=== PATIENT | female | born 1965 | race African-American/Black ===

== ENCOUNTER 2024-07-14 07:26 | Inpatient (IN) | payer OTHER ==
[~2024-07-14] VITALS: Ht 177.8 cm; Wt 79.5 kg
[2024-07-14] MEDS: IBUPROFEN 600 MG TABLET PO ONE (11:01)
[2024-07-14] MEDS: CloNIDine HCL 0.1 MG TABLET PO ONE ×2 (11:01→20:49)
[2024-07-14] MEDS: LISINOPRIL 10 MG TABLET PO ONE ×2 (11:02→14:47)
[2024-07-14 11:24] LABS: BASOPHILS % (AUTO) 0.9 % (0.0-2.0); EOSINOPHILS % (AUTO) 1.2 % (1.0-6.0); HEMATOCRIT 40.6 % (36-46); HEMOGLOBIN 13.1 g/dL (12.0-16.0); LYMPHOCYTES # (AUTO) 1.2 K/uL (1.0-4.8); LYMPHOCYTES % (AUTO) 15.3 % (22.0-44.0); MEAN CORPUSCULAR HEMOGLOBIN 28.2 pg (26.0-34.0); MEAN CORPUSCULAR HGB CONC 32.4 G/dL (31.0-37.0); MEAN CORPUSCULAR VOLUME 87 fL (80-100); MONOCYTES # (AUTO) 0.5 K/uL (0.1-1.0); NEUTROPHILS # (AUTO) 5.9 K/uL (1.8-7.7); NEUTROPHILS % (AUTO) 76.6 % (40.0-70.0); PLATELET COUNT (AUTO) 274 K/uL (150-450); RED BLOOD CELL COUNT(AUTO) 4.67 MIL/uL (4.00-5.20); RED CELL DISTRIBUTION WIDTH 12.7 % (11.5-14.5); WHITE BLOOD COUNT (AUTO) 7.7 K/uL (4.5-11.0)
[2024-07-14 11:38] LABS: PROTHROMBIN TIME 10.1 SEC (9.4-11.6)
[2024-07-14 11:53] LABS: ANION GAP 8 mmol/L (8-16); CALCIUM, TOTAL 8.8 mg/dL (8.8-10.5); CARBON DIOXIDE 29 mmol/L (22-29); CHLORIDE 104 mmol/L (98-107); CREATININE 0.97 mg/dL (0.60-1.30); GLOMERULAR FILTR. RATE CALC > 60 mL/min (>60); GLUCOSE,RANDOM 104 mg/dL (70-110); POTASSIUM 4.2 mmol/L (3.5-5.1); SODIUM SERUM 141 mmol/L (136-145); UREA NITROGEN, BLOOD 10 mg/dL (7-18)
[2024-07-14 11:54] LABS: TROPONIN I-HIGH SENSITIVITY 9 ng/L (<51)
[2024-07-14 11:58] LABS: B-TYPE NATRIURETIC PEPTIDE 52 pg/mL (0-100)
[2024-07-14 12:04] LABS: CREATINE KINASE, TOTAL ONLY 183 U/L (26-192)
[2024-07-14 14:42] LABS: APPEARANCE,URINE CLEAR (CLEAR); BILIRUBIN,URINE NEGATIVE (NEGATIVE); COLOR,URINE LIGHT YELLOW (YELLOW); GLUCOSE, URINE (UA) NEGATIVE (NEGATIVE); KETONES,URINE NEGATIVE (NEGATIVE); LEUKOCYTE ESTERASE ,URINE NEGATIVE (NEGATIVE); NITRATE,URINE NEGATIVE (NEGATIVE); OCCULT BLOOD,URINE NEGATIVE (NEGATIVE); PROTEIN,URINE NEGATIVE (NEGATIVE); SPECIFIC GRAVITIY, URINE 1.019 (1.003-1.030); UROBILINOGEN,URINE <=1.0 mg/dL (<=1.0)
[2024-07-14] MEDS: AmLODIPine BESYLATE 5 MG TABLET PO ONE (14:47)
[2024-07-14] MEDS ORDERED: MORPHINE SULFATE 2 MG/ML SYRINGE IVP PRN (16:00)
[2024-07-14] MEDS ORDERED: ACETAMINOPHEN 325 MG TABLET PO PRN (16:00)
[2024-07-14] MEDS ORDERED: ONDANSETRON HCL 4 MG/2 ML VIAL IVP PRN (16:00)
[2024-07-14] MEDS ORDERED: BISACODYL 10 MG RECTAL RECTAL SUPPOSITORY PR PRN (16:00)
[2024-07-14] MEDS ORDERED: MAGNESIUM HYDROXIDE SUSPENSION 30 ML UDCUP PO PRN (16:00)
[2024-07-14] MEDS ORDERED: IPRATROPIUM BROMIDE 0.5 MG/2.5 ML NEB SOLUTION NEB PRN (16:00)
[2024-07-14] MEDS ORDERED: HYDROCODONE/ACETAMINOPHEN 5-325 MG TABLET PO PRN (16:00)
[2024-07-14] MEDS ORDERED: ALBUTEROL SULFATE 2.5 MG/0.5 ML NEB SOLUTION NEB PRN (16:00)
[2024-07-14] MEDS ORDERED: ZOLPIDEM TARTRATE 5 MG TABLET PO PRN (16:00)
[2024-07-14] MEDS: NiCARDipine HCL 25 MG in SODIUM CHLORIDE 0.9% 240 ML IV PRN (16:35)
[2024-07-14] MEDS: HEPARIN SODIUM,PORCINE 5,000 UNITS/ML VIAL SQ SCH (16:47)
[2024-07-14] MEDS: NIFEdipine 30 MG ER TABLET PO ONE (18:12)
[2024-07-14 22:10] VITALS: BP 145/81; PULSE 79; RESP 18; O2SAT 100
[2024-07-15 00:33] VITALS: BP 135/83; PULSE 75; RESP 18; TEMP 98.9; O2SAT 96
[2024-07-15 04:31] VITALS: BP 151/108; PULSE 81; RESP 18; TEMP 97.8; O2SAT 98
[2024-07-15 08:19] VITALS: BP 146/88; PULSE 79; RESP 18; TEMP 98.4; O2SAT 97
[2024-07-15] MEDS: PANTOPRAZOLE SODIUM 40 MG DR TABLET PO SCH (08:27)
[2024-07-15] MEDS: NIFEdipine 60 MG ER TABLET PO SCH (08:27)
[2024-07-15 11:39] VITALS: BP 124/77; PULSE 81; RESP 18; TEMP 97.9; O2SAT 98
[2024-07-15 16:00] VITALS: BP 147/65; PULSE 83; RESP 18; TEMP 97.9; O2SAT 97
[2024-07-15] MEDS ORDERED: NIFE-129 PO (16:02)
[2024-07-15 20:00] VITALS: BP 148/91; PULSE 91; RESP 18; TEMP 98.5; O2SAT 95
[2024-07-16 00:05] VITALS: BP 143/84; PULSE 88; RESP 20; TEMP 98.5; O2SAT 98
[2024-07-16 00:13] VITALS: BP 137/86; PULSE 85; RESP 18; TEMP 99; O2SAT 99
[2024-07-16 04:56] VITALS: BP 145/79; PULSE 86; RESP 18; TEMP 98.3; O2SAT 95
== END 2024-07-16 07:15 | disposition home or self-care (01) | DRG 305 ==
LOC: EMS 07:31 → EDH 15:54 → 5S 22:05
PROVIDERS: ADMIT Hospitalist; ATTEND Hospitalist
DX: I10 Essential (primary) hypertension (principal); F17.210 Nicotine dependence, cigarettes, uncomplicated; J45.909 Unspecified asthma, uncomplicated; Z90.710 Acquired absence of both cervix and uterus; Z71.6 Tobacco abuse counseling
CPT/HCPCS: 71045; 80048; 81003; 82550; 83880; 84484; 85025; 85610; 85730; 93005; 99285; J1644; J3490; J7050; 36415-L1; 36415-TC